=== PATIENT | female | born 1965 | race Two or more races ===

== ENCOUNTER 2025-08-31 08:45 | Emergency (ER) | payer MEDICAID ==
[~2025-08-31] VITALS: Ht 157.5 cm; Wt 69.5 kg
[2025-08-31 09:19] VITALS: BP 143/86; PULSE 93; RESP 17; TEMP 99; O2SAT 96
--- NOTE | 2025-08-31 09:19 | ED.PDOC ---
Back pain HPI HPI Comments A 60 YEAR OLD FEMALE PRESENTS TO THE ED WITH COMPLAINT OF NECK PAIN AND MIDDLE BACK PAIN. PATIENT STATES SHE HAS BEEN EXPERIENCING NECK PAIN THAT RADIATES IN HER MIDDLE BACK OFF AND ON FOR THE PAST 2 MONTHS. PATIENT REPORTS HER PRIMARY CARE PHYSICIAN GAVE HER CELEBREX, BUT NOTES THERE HAS BEEN NO IMPROVEMENT IN HER SYMPTOMS. PATIENT ALSO NOTES SHOWS AN APPOINTMENT SCHEDULED WITH [facility] [facility] IN NOVEMBER 2025. PATIENT DENIES SADDLE ANESTHESIA, URINARY INCONTINENCE, BOWEL INCONTINENCE, FEVER, CHILLS, SHORTNESS OF BREATH, CHEST PAIN, ABDOMINAL PAIN, NAUSEA, VOMITING, HEADACHE, OR OTHER COMPLAINTS. NO OTHER SYMPTOMS OR MODIFYING FACTORS AT THIS TIME. PATIENT IS ALERT, ORIENTED X 4, AND HAS STEADY GAIT. Chief Complaint: Back Pain Time Seen by MD: 08:53 Reviewed Notes: Nurses Notes, Medications, Allergies Allergies: Uncoded Allergies: METAMIZOLE (Allergy, Mild, 08/31/25) Home Meds Active Scripts Tramadol HCl (Tramadol HCl) 50 Mg Tab, 50 MG PO BID, #20 TAB Prov:FRIDA MCKEE 08/31/25 Information Source: Patient Mode of Arrival: Ambulatory Timing: Months Duration: Intermittent Location of Back pain: (B) Cervical, (B) Thoracic Severity: Moderate Prehospital treatment: None Quality: Aching Onset: Spontaneous History of: None Modifying Factors: Movement, Twisting Associated signs and symptoms: None Past Medical History PAST MEDICAL HISTORY: High Lipids, Thyroid Surgical History (Other): RIGHT HIP REPLACEMENT DOWNSTAIRS MAID History: No Pertinent DOWNSTAIRS MAID History Family History Family History: Reviewed,noncontributory to illness Social History Smoker: Non-Smoker Alcohol: Denies ETOH Use Drugs: Denies Drug Use Lives In: Home Constitutional: denies: chills, diaphoresis, fatigue, fever, malaise, sweats, weakness, others EENTM: denies: blurred vision, double vision, ear bleeding, ear discharge, ear drainage, ear pain, ear ringing, eye pain, eye redness, hearing loss, mouth pain, mouth swelling, nasal discharge, nose bleeding, nose congestion, nose pain, photophobia, tearing, throat pain, throat swelling, voice changes, others Respiratory: denies: cough, hemoptysis, orthopnea, SOB at rest, shortness of breath, SOB with excertion, stridor, wheezing, others Cardiovascular: denies: chest pain, dizzy spells, diaphoresis, Dyspnea on exertion, edema, irregular heart beat, left arm pain, lightheadedness, palpitati ons, PND, syncope, others Gastrointestinal: denies: abdomen distended, abdominal pain, blood streaked bowels, constipated, diarrhea, dysphagia, difficulty swallowing, hematemesis, melena, nausea, poor appetite, poor fluid intake, rectal bleeding, rectal pain, vomiting, others Genitourinary: denies: abnormal vagina bleeding, burning, dyspareunia, dysuria, flank pain, frequency, hematuria, incontinence, pain, , vagina discharge, urgency, others Neurological: denies: dizziness, fainting, headache, left sided numbness, left sided weakness, numbness, paresthesia, pre-existing deficit, right sided numbness, right sided weakness, seizure, speech problems, tingling, tremors, weakness, others Musculoskeletal: reports: back pain, muscle pain, neck pain; denies: gout, joint pain, joint swelling, muscle stiffness, others Integumetry: denies: bruises, change in color, change in hair/nails, dryness, laceration, lesions, lumps, rash, wounds, others Allergic/Immunocompromised: denies: Difficulty Healing, Frequent Infections, Hives, Itching, others Hematologic/Lymphatic: denies: anemia, blood clots, easy bleeding, easy bruising, swollen glands, others Endocrine: denies: excessive hunger, excessive sweating, excessive thirst, excessive urination, flushing, intolerance to cold, intolerance to heat, unexplained weight gain, unexplained weight loss, others Psychiatric: denies: anxiety, bipolar disorder, depression, hopeless, panic disorder, schizophrenia, sleepless, suicidal, others All Other Systems: Reviewed and Negative Physical Exam General Appearance: No Apparent Distress, Normal HEENT: Normal ENT Inspection, PERRL/EOMI, Pharynx Normal, TMs Normal Neck: Full Range of Motion, Normal Inspection, Supple, Tender Lateral (AND MUSCLE SPASM ON POSTERIOR NECK, NO BONY TENDERNESS SWELLING AND DEFORMITY. ) Respiratory: Chest Non-Tender, Lungs Clear, No Accessory Muscle Use, No Respiratory Distress, Normal Breath Sounds Cardiovascular: No Edema, No JVD, No Murmur, No Gallop, Normal Peripheral Pulses, Regular Rate/Rhythm Breast Exam: Deferred Gastrointestinal: No Organomegaly, Non Tender, No Pulsatile Mass, Normal Bowel Sounds, Soft Genitalia: Deferred Pelvic: Deferred Rectal: Deferred Extremities: No calf tenderness, Normal capillary refill, Normal inspection, Normal range of motion, Non-tender, No pedal edema Musculoskeletal : Location: Bilateral Extremity Location: Back Apperance: Tenderness (AND MUSCLE SPASM ON UPPER BACK, NO BONY TENDERNESS, SWELLING AND DEFORMITY. ) Neurologic: Alert, internal wholesaler II-XII nml as Tested, No Motor Deficits, Normal Affect, Normal Mood, No Sensory Deficits Cerebellar Function: Normal Reflexes: Normal Skin: Dry, Normal Color, Warm Peripheral Pulses: 2+ carotid (R), 2+ carotid (L) Lymphatic: No Adenopathy Was a procedure done? Was a procedure done?: No Back Pain Differential Dx Differential Diagnosis: DJD, Musculoskeletal Pain, Strain Other Differential Diagnosis DDD, CERVICAL RADICULOPATHY X-Ray, Labs, Meds, VS Vital Signs Date Time Temp Pulse Resp B/P (MAP) Pulse Ox O2 Delivery O2 Flow Rate FiO2 08/31/25 09:19 93 17 96 Room Air 08/31/25 09:19 99.0 93 17 143/86 (105) 96 99.0 08/31/25 08:48 99.1 87 12 132/95 100 99.1 Current Medications Medications (Trade) Dose Ordered Sig/Gilda Route Start Time Stop Time Status Last Admin Ketorolac Tromethamine (Toradol Injection) 60 mg ONCE ONCE IM 08/31/25 10:30 08/31/25 10:31 08/31/25 10:20 PATIENT: MARYLOU ANDRADEACCT: [id number]: [id number] : 1965 LOC: ER ROOM / BED: / AGE / SEX: 60 / F ADM STATUS: REG ER SERVICE 1 ORDERING PHYSICIAN: FRIDA MCKEE PROCEDURE(s): THOSP - SPINE THORACIC 2VIEW REASON: PAIN, NO INJURY ORDER NUMBER(s): [id number], ACCESSION NUMBER(s): [id number] INDICATION: PAIN, NO INJURY COMPARISON: None TECHNIQUE: 3 views of the thoracic spine were obtained. FINDINGS: The thoracic vertebral alignment is normal. Mild S shaped thoracolumbar scoliosis. The intervertebral disc spaces are well-maintained. No significant facet arthropathy is noted. No acute fracture, vertebral compression deformity or aggressive osseous lesions. The imaged thorax and abdomen are grossly unremarkable. IMPRESSION: 1. No acute fracture. 2. Mild S shaped thoracolumbar scoliosis. ATED BY: FATOUMATA ROACH MD DICTATED DATE/TIME: 08/31/25 101 SIGNED BY: FATOUMATA ROACH MD SIGNED DATE/TIME: 08/31/25 1014 CC: X-Ray, Labs, Meds, VS Comment EXTERNAL MEDICAL RECORDS REVIEWED: [NONE] INDEPENDENT HISTORIANS: [NONE] SOCIAL DETERMINANTS OF HEALTH: [NONE] LABS ORDERED: NONE REVIEWED AND INTERPRETED RESULTS: NONE IMAGING ORDERED: XR C-SPINE: [INTERPRETED BY ME. NO ACUTE FINDINGS. MILD DDD VISUALIZED. NO FRACTURES OR DISLOCATION. PENDING RADIOLOGIST REPORT.] XR T-SPINE: [INTERPRETED BY ME. NO ACUTE FINDINGS. MILD DDD VISUALIZED. NO FRACTURES OR DISLOCATION. PENDING RADIOLOGIST REPORT.] TREATMENTS ORDERED: TORADOL 60MG IM PROCEDURES PERFORMED: NONE CRITICAL CARE TIME: NONE I HAVE DISCUSSED THE PATIENT WITH THE ATTENDING PHYSICIAN DR. TAYLOR AND HE AGREES WITH THE PATIENT'S PLAN OF CARE AND DISPOSITION. BASED ON HISTORY OF PRESENT ILLNESS, AND PHYSICAL EXAM, PATIENT WILL BE DISCHARGED HOME. DISCUSSED PLAN FOR DISCHARGE HOME WITH RX [ULTRAM]. MEDICATION WARNINGS GIVEN. SHARED DECISION MAKING: PATIENT INSTRUCTED TO FOLLOW UP WITH PRIMARY CARE PROVIDER IN 1-2 DAYS FOR RE-EVALUATION OF SYMPTOMS. PATIENT VERBALIZES UND ERSTANDING TO RETURN TO ED FOR NEW OR WORSENING SYMPTOMS OR IF FOLLOW UP WITH PCP CANNOT BE OBTAINED. PATIENT FEELS COMFORTABLE GOING HOME AT THIS TIME. ALL QUESTIONS ADDRESSED AT TIME OF DISCHARGE. Images Reviewed?: Images reviewed and evaluated by me Time of 1ST Reevaluation: 10:30 Reevaluation 1ST: Improved Patient Education/Counseling: Diagnosis, Treatment, Need For Follow Up Family Education/Counseling: Diagnosis, Treatment, Need For Follow Up Medical Screening: No EMC Exist At This Time SEPSIS Sepsis Screen Date sepsis recognized/suspect: Aug 31, 2025 Time Sepsis recognized/suspect: 847 Recent Procedure: No On Antibiotic Therapy: No Respiratory Rate >20: No Heart Rate >90: No Temp<36 C (96.8 F) or >38.3 C: No SBP <90 or MAP <65 mmHG: No New Acute Mental Status Change: No Is the patient on CPAP, BIPAP,: No Physician Orders Cervical Spine 3v (08/31/25 09:12) Spine Thoracic 2view (08/31/25 09:12) Ketorolac Injection (Toradol Injection) (08/31/25 10:30) Vital Signs Date Time Temp Pulse Resp B/P (MAP) Pulse Ox O2 Delivery O2 Flow Rate FiO2 08/31/25 09:19 93 17 96 Room Air 08/31/25 09:19 99.0 93 17 143/86 (105) 96 99.0 08/31/25 08:48 99.1 87 12 132/95 100 99.1 Medications Medications Dose Ordered Sig/Gilda Route Start Time Stop Time Status Last Admin Dose Admin Ketorolac Tromethamine 60 mg ONCE ONCE IM 08/31/25 10:30 08/31/25 10:31 08/31/25 10:20 Departure 1 Departure Time of Disposition: 10:30 Impression: Primary Impression: Cervical muscle strain Qualified Codes: S16.1XXA - Strain of muscle, fascia and tendon at neck level, initial encounter Additional Impressions: DDD (degenerative disc disease), thoracic Scoliosis Qualified Codes: M41.34 - Thoracogenic scoliosis, thoracic region Disposition: HOME / SELF CARE / HOMELESS Condition: Stable Additional Instructions: FOLLOW-UP WITH PCP IN 1 TO 2 DAYS. TAKE MEDICATIONS PRESCRIBED. RETURN TO ED FOR ANY NEW OR WORSENING SYMPTOMS. e-Prescriptions Tramadol HCl (Tramadol HCl) 50 Mg Tab 50 MG PO BID, #20 TAB Prov: FRIDA MCKEE 08/31/25 Discharged With: Self, Relative Critical Care Note Critical Care Time?: No Stability Stability form required: No I personally scribed for FRIDA MCKEE ([email or web address]) on 08/31/25 at 09:19. Electronically submitted by Chilango Botello ([email or web address]). I personally scribed for FRIDA MCKEE ([email or web address]) on 08/31/25 at 10:10. Electronically submitted by Chilango Botello ([email or web address]). FRIDA MCKEE Aug 31, 2025 09:19
--- NOTE | 2025-08-31 10:13 | DVH ---
INDICATION: PAIN, NO INJURY X 2 MONTHS COMPARISON: None TECHNIQUE: 3 views of the cervical spine were obtained. FINDINGS: The cervical vertebral alignment is normal. The predental space is normal. The intervertebral disc spaces are well-maintained. No significant facet arthropathy is noted. No acute fracture, vertebral compression deformity or aggressive osseous lesions. The imaged lung apices are unremarkable. IMPRESSION: 1. No acute fracture.
[2025-08-31] MEDS ORDERED: TRAM-626 PO (10:17)
--- NOTE | 2025-08-31 10:17 | DVH ---
INDICATION: PAIN, NO INJURY COMPARISON: None TECHNIQUE: 3 views of the thoracic spine were obtained. FINDINGS: The thoracic vertebral alignment is normal. Mild S shaped thoracolumbar scoliosis. The intervertebral disc spaces are well-maintained. No significant facet arthropathy is noted. No acute fracture, vertebral compression deformity or aggressive osseous lesions. The imaged thorax and abdomen are grossly unremarkable. IMPRESSION: 1. No acute fracture. 2. Mild S shaped thoracolumbar scoliosis.
[2025-08-31] MEDS: KETOROLAC TROMETH 60MG/2ML VIAL IM ONE (10:20)
== END 2025-08-31 10:29 | disposition home or self-care (01) ==
LOC: ER 08:45
DX: S16.1XXA Strain of muscle, fascia and tendon at neck level, initial encounter (principal); M51.34 Other intervertebral disc degeneration, thoracic region; M41.34 Thoracogenic scoliosis, thoracic region; E78.5 Hyperlipidemia, unspecified; Z79.899 Other long term (current) drug therapy; Z96.641 Presence of right artificial hip joint; X58.XXXA Exposure to other specified factors, initial encounter; Y93.89 Activity, other specified; Y92.89 Other specified places as the place of occurrence of the external cause; Y99.8 Other external cause status
CPT/HCPCS: 72040; 72070; 96372; 99284; J1885